=== PATIENT | male | born 1995 | race Hispanic/Latino ===

== ENCOUNTER 2021-02-08 09:31 | Emergency (ER) | payer SELFPAY ==
--- NOTE | 2021-02-08 09:38 | ED.EAR ---
HPI - Ear Problem General Chief complaint: Ear Stated complaint: ear pain Time Seen by Provider: 02/08/21 09:37 Source: patient and RN notes reviewed Mode of arrival: ambulatory Limitations: no limitations History of Present Illness HPI Narrative: 25 male presents with concern for bilateral ear pain and itching, worse on the left. Reports symptoms started 3 days ago. Reports hearing seems muffled in the left ear. Reports that he used a Q-tip in the left ear and a small amount of blood was on the Q-tip. Reports he has been taking Claritin for his symptoms. He denies any drainage from the ear, rhinorrhea, nasal congestion, headache, cough, sore throat. Denies any history with problems with this ear MD Complaint: ear pain Related Data Allergies Allergy/AdvReac Type Severity Reaction Status Date / Time No Known Allergies Allergy Unverified 02/08/21 09:46 Review of Systems Review of Systems: Narrative: CONSTITUTIONAL: Denies malaise, chills, sweats, or fever. EYES: Denies visual changes, redness, or discharge. ENT: Denies rhinorrhea, congestion, sinus pain, and sore throat. Reports bilateral otalgia and itching CARDIOVASCULAR: Denies chest pain, palpitations, or edema. RESPIRATORY: Denies cough dyspnea. GASTROINTESTINAL: Denies abdominal pain, nausea, vomiting, diarrhea SKIN: Denies rash or itching. MUSCULOSKELETAL: Denies myalgia. NEUROLOGIC: Denies headache. All systems reviewed & are unremarkable except as noted in HPI and below PMFSH Comments At time of signature, agree with nursing past medical, surgical, social and family history. There is no relevant family history pertinent to the presenting complaint Exam Narrative: Exam Narrative: GENERAL: Well-appearing, well-nourished, and in no acute distress. HEAD: Normocephalic EYES: PERRLA, conjunctivae clear ENT: Nares clear. Mucous membranes moist. TM pearly lancaster with dull light reflex bilaterally; no tragal tenderness. Oropharynx not erythematous without lesions. Tonsils not enlarged and without exudate, no drooling, no hoarseness, no trismus, uvula midline. NECK: Supple. No lymphadenopathy CHEST: Clear to auscultation, breath sounds equal. No wheezing, rhonchi, rales, or stridor. No respiratory distress, speaks in full sentences. HEART: Regular rate and rhythm. No murmur heard. SKIN: Warm, dry, no rash. NEURO: Alert and oriented x3. PSYCH: Normal mood and affect Course Course Emergency Course: Patient is aware of diagnosis, understands and agrees to treatment plan. Anticipatory guidance given. Patient agrees to follow-up as directed and is aware of reasons to seek care at the emergency department. Portions of this record may have been created with voice recognition software Vital Signs Vital signs: Vital Signs Temperature 96.9 F L 02/08/21 09:43 Pulse Rate 90 02/08/21 09:43 Respiratory Rate 16 02/08/21 09:43 Blood Pressure 140/75 02/08/21 09:43 Pulse Oximetry 99 02/08/21 09:43 Temperature 96.9 F L 02/08/21 09:46 Pulse Rate 90 02/08/21 09:46 Respiratory Rate 16 02/08/21 09:46 Blood Pressure 140/75 02/08/21 09:46 Pulse Oximetry 99 02/08/21 09:46 Reviewed. Medical Decision Making MDM Narrative Medical decision making narrative: Differential diagnosis considered: Ott virus, strep pharyngitis, allergic rhinitis, upper respiratory tract infection, sinusitis, rhinosinusitis, nasopharyngitis. viral pharyngitis, otitis media, otitis externa, pneumonia, bronchitis, viral cough syndrome, viral syndrome, and influenza. Exam findings show no acute concerns or changes; patient is non-toxic appearing and is in no distress. Patient is appropriate for outpatient treatment and follow-up. Vital Signs Vital Signs: Vital Signs Temperature 96.9 F L 02/08/21 09:43 Pulse Rate 90 02/08/21 09:43 Respiratory Rate 16 02/08/21 09:43 Blood Pressure 140/75 02/08/21 09:43 Pulse Oximetry 99 02/08/21 09:43 Temperature 96.9 F L
[2021-02-08 09:43] VITALS: BP 140/75; PULSE 90; RESP 16; TEMP 36.1; O2SAT 99
[2021-02-08 09:46] VITALS: BP 140/75; PULSE 90; RESP 16; TEMP 36.1; O2SAT 99
== END 2021-02-08 09:57 | disposition home or self-care (01) ==
PROVIDERS: Emergency Provider Nurse Practitioner
DX: H65.193 Other acute nonsuppurative otitis media, bilateral (principal)
CPT/HCPCS: 99213; G0463

== ENCOUNTER 2022-05-30 00:56 | Emergency (ER) | payer MEDICAID, SELFPAY ==
[2022-05-30 01:02] VITALS: BP 163/94; PULSE 88; RESP 18; TEMP 36.6; O2SAT 100
[2022-05-30 01:48] LABS: Glucose Point of Care 114 mg/dl (65-105)
--- NOTE | 2022-05-30 01:57 | ED.GENADULT ---
HPI - General Adult General Chief complaint: Unspecified Stated complaint: I think my belly button is infected Time Seen by Provider: 05/30/22 01:11 History of Present Illness HPI narrative: Pt is a 27 y/o male, presents to ED via POV with a small abscess in the umbilicus, first noticed 3 days ago as a sore pimple . The area has become firm around the umbilicus and he has attempted to squeeze it without success. He does endorse hx of a similar eruption several years ago but denies hx of MRSA. HE denies fevers or chills, CP, SOB, abdominal pain, NVDC or urinary symptoms Related Data Allergies Allergy/AdvReac Type Severity Reaction Status Date / Time No Known Allergies Allergy Unverified 02/08/21 09:46 Review of Systems Integumentary/Breasts: Comments: refer to HPI Exam Const: General: cooperative, healthy appearing, no acute distress, well developed, alert, awake and Physically active Orientation/consciousness: patient oriented x3 Limitations: no limitations HENMT: Head: normal to inspection Eyes: General: appearance normal, both eyes and all related structures Neck: Neck: normal visual inspection and no meningeal signs Chest: Chest palpation & inspection: normal inspection of the chest Resp: Effort & Inspection: normal respiratory effort Auscultation: clear to auscultation bilaterally Cardio: Palpation: normal PMI Rate: regular rate Heart sounds: S1 normal heart sound present and S2 normal heart sound present Skin: General skin exam: normal color Other: There is a small, superficial appearing abscess to the right umbilicus, with slight pressure applied to the abscess to determine fluctuance, the abscess ruptured and drained purulent discharge-culture obtained. There is no gross cellulitis surrounding and he has minimal tenderness to palpation over the affected area. No otherwise abnormality of the abdomen Neuro: General: oriented to person, patient oriented x3 and no focal motor deficits Course Course Emergency Course: plan: culture sent, [place] for home, FU with PCP, return if fevers arise. Vital Signs Vital signs: Vital Signs Temperature 36.6 C 05/30/22 01:02 Pulse Rate 88 05/30/22 01:02 Respiratory Rate 18 05/30/22 01:02 Blood Pressure 163/94 H 05/30/22 01:02 Pulse Oximetry 100 05/30/22 01:02 Oxygen Delivery Room Air 05/30/22 01:02 Temperature 36.6 C 05/30/22 01:02 Pulse Rate 88 05/30/22 01:02 Respiratory Rate 18 05/30/22 01:02 Blood Pressure 163/94 H 05/30/22 01:02 Pulse Oximetry 100 05/30/22 01:02 Oxygen Delivery Room Air 05/30/22 01:02 Medical Decision Making Differential Diagnosis Differential Diagnosis: abscess, cellulitis, MRSA Vital Signs Vital Signs: Vital Signs Temperature 36.6 C 05/30/22 01:02 Pulse Rate 88 05/30/22 01:02 Respiratory Rate 18 05/30/22 01:02 Blood Pressure 163/94 H 05/30/22 01:02 Pulse Oximetry 100 05/30/22 01:02 Oxygen Delivery Room Air 05/30/22 01:02 Temperature 36.6 C 05/30/22 01:02 Pulse Rate 88 05/30/22 01:02 Respiratory Rate 18 05/30/22 01:02 Blood Pressure 163/94 H 05/30/22 01:02 Pulse Oximetry 100 05/30/22 01:02 Oxygen Delivery Room Air 05/30/22 01:02 Lab Data Labs: Lab Results 05/30/22 Range/Units 01:43 POC Capillary Glucose 114 H (65-105) mg/dl Discharge Plan Discharge Clinical Impression: Abscess of umbilicus Patient Disposition: Home, Self-Care Condition: Stable Instructions: Antibiotic Form, Abscess (ED) Additional Instructions: KEEP AREA CLEAN AND DRY. COMPLETE ANTIBIOTICS DIRECTED, TAKE WITH FOOD TO LIMIT GI SIDE EFFECTS. SEE YOUR DOCTOR IN 3 DAYS FOR WOUND CHECK, SOONER IF HEALING CONCERNS ARISE Prescriptions: New doxycycline hyclate 100 mg capsule 100 mg PO BID Qty: 20 0RF No Action cetirizine-pseudoephedrine [Zyrtec-D] 5-120 mg tablet extended release 12 hr 1 tablet PO Q12H PRN (Reason: nasal
[2022-05-30 03:01] VITALS: BP 138/79; PULSE 88; RESP 16; O2SAT 98
== END 2022-05-30 03:02 | disposition home or self-care (01) ==
PROVIDERS: Emergency Provider Nurse Practitioner Family
DX: L02.216 Cutaneous abscess of umbilicus (principal)
CPT/HCPCS: 82948; 87070; 87205; 99283

== ENCOUNTER 2022-08-28 12:55 | Emergency (ER) | payer OTHER, SELFPAY ==
[2022-08-28 13:25] VITALS: BP 157/118; PULSE 98; RESP 18; TEMP 36.3; O2SAT 100
--- NOTE | 2022-08-28 13:36 | ED.SKABFB ---
HPI - Skin/Abscess/Foreign Bdy General Chief complaint: Skin/Abscess/Foreign Body Stated complaint: Bug Bites Time Seen by Provider: 08/28/22 13:38 Source: patient, RN notes reviewed and old records reviewed Mode of arrival: ambulatory Limitations: no limitations History of Present Illness HPI narrative: 27-year-old male presents to the [facility] with 3-4 days of itching over, states that he was in the car with his sister and was exposed to scabies. No rash noted at this time. No treatment prior to arrival Related Data Allergies Allergy/AdvReac Type Severity Reaction Status Date / Time No Known Allergies Allergy Unverified 02/08/21 09:46 Review of Systems Review of Systems: All systems reviewed & are unremarkable except as noted in HPI and below Constitutional: Constitutional: Reports no additional constitutional complaints, Denies chills and Denies fever(s) Eyes: Eyes: Reports no additional eye complaints ENT: Reports system reviewed and no additional complaints, except as documented Cardiovascular: Cardiovascular: Reports no additional cardiovascular complaints Respiratory: Respiratory: Reports no additional respiratory complaints Gastrointestinal: Gastrointestinal: Reports no additional gastrointestinal complaints Musculoskeletal: Musculoskeletal: Reports no additional musculoskeletal complaints Integumentary/Breasts: Skin/Breast: Reports as per HPI Neurologic: Reports system reviewed and no additional complaints, except as documented Psychiatric: Psychiatric: Reports no additional psychiatric complaints Allergic/Immunologic: Allergic/Immunologic: Reports no additional allergic/immunologic complaints PMFSH Social History Social History (Updated 08/28/22 @ 17:31 by Joie Rascon APRN) Gender identity (if verbalized by the patient): Male Comments At the time of my signature, I reviewed and agree with the nursing past medical, surgical, social, and family history. There is no relevant family history pertinent to the patient complaint. Exam Const: General: healthy appearing, comfortable, no acute distress, well developed, alert and well nourished Nutritional Appearance: well nourished Orientation/consciousness: patient oriented x3 Limitations: no limitations HENMT: Head: normal to inspection Ears: external ears normal Face/Nose/Sinus: Normal external nose present Mouth: Yes Normal oral and palatal mucosa present, Yes lip normal and Yes moist mucous membranes Eyes: General: appearance normal, both eyes and all related structures Pupils: Equal, round and reactive pupils present Neck: Neck: normal visual inspection, full ROM, no lymphadenopathy and no meningeal signs Chest: Chest palpation & inspection: normal inspection of the chest Resp: Effort & Inspection: normal respiratory effort and no use of accessory muscles Auscultation: clear to auscultation bilaterally, no crackles, no rales, no rhonchi and no wheezes Cardio: Rate: regular rate Rhythm: regular rhythm Back/Spine/Pelvis: Cervical Spine: cervical ROM normal and No Cervical spine tenderness Thoracic/Lumbar Spine: thoracic and lumbar spine normal to inspection and thoraco-lumbar ROM normal Skin: General skin exam: normal color Rashes: no rashes Wounds: no wounds Neuro: General: patient oriented x3, moves all extremities, no meningeal signs and no focal motor deficits Cranial nerves: Yes Equal, round and reactive pupils present Speech: normal speech Gait exam (Neuro): Normal gait present Extrem: General: normal to inspection, full ROM and capillary refill normal Psych: Appearance: grossly normal and well kempt Mental Status: mental status grossly normal Affect: normal affect Attitude: cooperative Thought content: Yes Normal thought content present Course Course Emergency Course: Discharge instructions reviewed with patient, as well as provided in writing per nursing staff. The instructions also include specific and strict ret
== END 2022-08-28 13:58 | disposition home or self-care (01) ==
PROVIDERS: Emergency Provider Nurse Practitioner
DX: Z20.7 Contact with and (suspected) exposure to pediculosis, acariasis and other infestations (principal)
CPT/HCPCS: 99213; G0463

== ENCOUNTER 2023-01-03 22:27 | Emergency (ER) | payer BC, SELFPAY ==
[2023-01-03 22:30] VITALS: BP 161/113; PULSE 104; TEMP 36.7; O2SAT 98
[2023-01-03 22:52] LABS: Appearance Urine Turbid (Clear); Bacteria Urine None Seen /hpf; Bilirubin Urine Negative (Negative); Color Urine Yellow (Yellow); Glucose Urine UA Negative (Negative); Ketones Urine Negative (Negative); Leukocyte Esterase Ur Negative LEU/UL (Negative); Nitrate Urine Negative (Negative); Non Pathogenic Casts 0-2; Protein Urine Negative (Negative); RBC Urine 0-2 /hpf (0-2); Specific Grav Ur 1.017 (1.001-1.035); Squamous Epithelial Cell Urine None seen /hpf (Few); Urobilinogen Urine 0.2 mg/dL (<2.0); WBC Urine 0-5 /hpf
[2023-01-03 22:53] LABS: Add Urine Microscopic? YES
[2023-01-04] MEDS: DOXYCYCLINE HYCLATE 100 MG TABLET PO (00:01)
[2023-01-04] MEDS: cefTRIAXone 1 GM VIAL 0.5 GM IM (00:02)
--- NOTE | 2023-01-04 00:17 | ED.MALEGU ---
HPI - Male Genitourinary General Chief complaint: Urogenital-Male <Rosa Acosta PA-C - Last Filed: 01/04/23 01:49> Stated complaint: penile discharge- gonorrhea <Rosa Acosta PA-C - Last Filed: 01/04/23 01:49> Time Seen by Provider: 01/03/23 22:35 <Rosa Acosta PA-C - Last Filed: 01/04/23 01:49> Source: patient <ABBY Granados Last Filed: 01/04/23 01:49> Mode of arrival: ambulatory <ABBY Granados Last Filed: 01/04/23 01:49> Limitations: no limitations <ABBY Granados Last Filed: 01/04/23 01:49> History of Present Illness HPI Narrative: Patient is a 27 y/o male who presents to the ED with concern for STD exposure. Patient reports he was treated for gonorrhea last week, however his male partner was not treated and he had sexual intercourse with his partner last night. His partner is now symptomatic. Patient is concerned he may need treatment again. He is currently asymptomatic. He denies any penile discharge, pain, abdominal pain, testicular pain or swelling, dysuria, hematuria, fevers. <ABBY Granados Last Filed: 01/04/23 01:49> Related Data Allergies/Adverse reactions: Allergies Allergy/AdvReac Type Severity Reaction Status Date / Time No Known Allergies Allergy Verified 01/04/23 22:05 <Rosa Acosta PA-C - Last Filed: 01/04/23 01:49> Review of Systems Review of Systems: CONSTITUTIONAL: Denies fever, chills, or sweats. GASTROINTESTINAL: Denies abdominal pain, nausea, vomiting, or diarrhea. GENITOURINARY: See HPI. SKIN: Denies rash or itching. MUSCULOSKELETAL: Denies back pain, joint pain, or myalgia. <ABBY Granados Last Filed: 01/04/23 01:49> All systems reviewed & are unremarkable except as noted in HPI and below <Rosa Acosta PA-C - Last Filed: 01/04/23 01:49> [facility] [place] Past Medical History Medical History: Medical History No pertinent past medical history <Rosa Acosta PA-C - Last Filed: 01/04/23 01:49> Surgical History Surgical History: Surgical History No pertinent past surgical history <Rosa Acosta PA-C - Last Filed: 01/04/23 01:49> Social History Social History: Social History Smoking status: Never smoker Gender identity (if verbalized by the patient): Male <Rosa Acosta PA-C - Last Filed: 01/04/23 01:49> Exam Narrative: GENERAL: Well appearing, well-nourished, non-toxic, in no acute distress. HEAD: Normocephalic, atraumatic. NECK: Supple. No adenopathy, no masses. RESPIRATORY: Airway patent, respirations nonlabored. Clear to auscultation bilaterally, no rales, rhonchi, wheezing. CARDIOVASCULAR: Regular rate and rhythm without murmurs, rubs, or gallops. Peripheral pulses 2+ and equal bilaterally. ABDOMINAL: Soft, nontender, nondistended, no hepatosplenomegaly. Normoactive BS. MUSCULOSKELETAL: Moves all extremities. Strength/ROM intact without gross deformities. SKIN: Warm, dry, normal color. No rashes. NEURO: A&O X3. Speech clear. Cranial nerves II-XII grossly intact. Steady gait. No ataxic movements. PSYCHIATRIC: Appropriate mood and affect. Normal interaction. <Rosa Acosta PA-C - Last Filed: 01/04/23 01:49> Course TITLE EXAMINER/PA Physician Supervision This is a was performed by both a physician and an APC. I performed all aspects of the MDM as documented w/ the following additions: 27-year-old male presenting with his boyfriend to be evaluated and treated for STDs. Swabs were obtained. Patient will be treated empirically. Instructed to practice safe sex.All questions answered. Patient in agreement w/ disposition. <Chito St MD - Last Filed: 01/09/23 21:08> Vital Signs Vital signs: Vi
[2023-01-04 00:50] VITALS: RESP 17; O2SAT 99
== END 2023-01-04 00:50 | disposition home or self-care (01) ==
PROVIDERS: Emergency Provider Physician Assistant
DX: Z11.3 Encounter for screening for infections with a predominantly sexual mode of transmission (principal); R36.9 Urethral discharge, unspecified
CPT/HCPCS: 70450; 81001; 87491; 87591; 87661; 96372; 99283; A9270; J0696

== ENCOUNTER 2023-01-04 21:34 | Emergency (ER) | payer BC, SELFPAY ==
--- NOTE | ~2023-01-04 | CT_ITS ---
EXAMINATION: CT brain wo con INDICATION: Head injury COMPARISON: None TECHNIQUE: Standard unenhanced head CT. The dose-length product (DLP) was 681.00 mGy-cm. The mA was a djusted according to patient size. Iterative reconstruction technique was employed. FINDINGS: There is no intracranial hemorrhage, acute infarction, or abnormal mass lesion. The ventric les are normal. There is no abnormal mass effect or midline shift. The lancaster-white matter differentiat ion is normal. The basal cisterns are patent. There is mild left periorbital soft tissue swelling. Th e orbits are normal. The paranasal sinuses, mastoids and calvarium are normal. IMPRESSION: 1. No acute intracranial abnormality. Reviewed, dictated and finalized at location F.
[2023-01-04 21:50] VITALS: BP 149/103; PULSE 117; RESP 18; TEMP 36.8; O2SAT 97
--- NOTE | 2023-01-04 22:11 | ED.GENADULT ---
HPI - General Adult General Chief complaint: Head Injury Stated complaint: Head lac Time Seen by Provider: 01/04/23 22:00 History of Present Illness HPI narrative: 27-year-old male presenting to the ED for evaluation of a laceration to his left eyelid. Patient states that earlier this evening he was struck in the left eyebrow by a pole that fell from the ceiling during a renovation. Patient states he did feel dazed after the injury. Patient denies any loss of conscious. Patient reports he does have alcohol on board. Patient denies any current change in vision. Patient is requesting no suture at this time. Patient denies any associated nausea or vomiting. Patient is alert and at his baseline. Patient has no other complaints of injury. Related Data Allergies Allergy/AdvReac Type Severity Reaction Status Date / Time No Known Allergies Allergy Verified 01/04/23 22:05 Review of Systems Review of Systems: All systems reviewed & are unremarkable except as noted in HPI and below PMFSH Past Medical History Medical History No pertinent past medical history Surgical History Surgical History No pertinent past surgical history Social History Social History Smoking status: Never smoker Gender identity (if verbalized by the patient): Male Exam Narrative: APPEARANCE: Well appearing HEAD: normocephalic, injury to left eyelid EYES: PERRLA/EOMI, conjunctivae clear. NOSE: Normal no drainage EARS:TMS clear with good light reflex. THROAT: Pharynx clear, no exudate. NECK: Supple. No adenopathy, no masses. RESPIRATORY: Airway patent, respirations nonlabored. Clear to auscultation bilaterally, no rales, rhonchi, wheezing. CARDIOVASCULAR: Regular rate and rhythm without murmurs rubs or gallops. MUSCULOSKELETAL: Moves all extremities. Strength/ROM intact, No edema, No calf tenderness. NEURO: Alert. Cranial nerves II through XII intact. Good gait. Good coordination SKIN: Injury to left eyelid, superficial laceration but there is a tissue avulsion on the medial aspect of the laceration Course Course Emergency Course: 27-year-old male who is intoxicated presenting for evaluation of laceration and head injury. Differential diagnosis includes intracranial injury, abdominal intoxication, laceration. 11:[address] was ordered to evaluate for any intracranial injury and head CT was negative. Patient denies any vision change. Patient has no periorbital tenderness to palpation. Normal fundus exam. Patient declined any suture or glue repair of the eyelid laceration. Patient also declined a tetanus update even though he is unsure of his last tetanus. Patient was encouraged of close follow-up with his primary care physician. All question concerns were addressed. Vital Signs Vital signs: Vital Signs Temperature 98.2 F 01/04/23 21:50 Pulse Rate 117 H 01/04/23 21:50 Respiratory Rate 18 01/04/23 21:50 Blood Pressure 149/103 H 01/04/23 21:50 Pulse Oximetry 97 01/04/23 21:50 Oxygen Delivery Room Air 01/04/23 21:50 Temperature 98.2 F 01/04/23 21:50 Pulse Rate 117 H 01/04/23 21:50 Respiratory Rate 18 01/04/23 21:50 Blood Pressure 149/103 H 01/04/23 21:50 Pulse Oximetry 97 01/04/23 21:50 Oxygen Delivery Room Air 01/04/23 21:50 Medical Decision Making Vital Signs Vital Signs: Vital Signs Temperature 98.2 F 01/04/23 21:50 Pulse Rate 117 H 01/04/23 21:50 Respiratory Rate 18 01/04/23 21:50 Blood Pressure 149/103 H 01/04/23 21:50 Pulse Oximetry 97 01/04/23 21:50 Oxygen Delivery Room Air 01/04/23 21:50 Temperature 98.2 F 01/04/23 21:50 Pulse Rate 117 H 01/04/23 21:50 Respiratory Rate 18 01/04/23 21:50 Blood Pressure 149/103 H 01/04/23 21:50 Pulse Oximetry 97 01/04/23 21:50 Oxyge
--- NOTE | 2023-01-04 23:37 | PC.NURSE ---
Patient refusing sutures. MD jackosn notified at this time.
== END 2023-01-04 23:46 | disposition home or self-care (01) ==
PROVIDERS: Emergency Provider Emergency Medicine
DX: S01.112A Laceration without foreign body of left eyelid and periocular area, initial encounter (principal); S09.90XA Unspecified injury of head, initial encounter; W20.8XXA Other cause of strike by thrown, projected or falling object, initial encounter
CPT/HCPCS: 70450; 99284

== ENCOUNTER 2024-12-02 00:41 | Emergency (ER) | payer OTHER, SELFPAY ==
[2024-12-02 00:48] VITALS: BP 176/114; PULSE 92; RESP 18; TEMP 36.4; O2SAT 100
[2024-12-02 03:15] LABS: Add Urine Microscopic? YES; Appearance Urine Cloudy (Clear); Bilirubin Urine Negative (Negative); Blood Urine Non-Hemolyzed Trace (Negative); Color Urine Yellow (Yellow); Glucose Urine UA Negative (Negative); Ketones Urine Trace mg/dL (Negative); Leukocyte Esterase Ur 2+ LEU/UL (Negative); Need Manual Microscopic Reviewed; Nitrate Urine Negative (Negative); Non Pathogenic Casts 0-2; Protein Urine 1+ mg/dL (Negative); RBC Urine 0-2 /hpf (0-2); Specific Grav Ur 1.027 (1.001-1.035); Squamous Epithelial Cell Urine None Seen /hpf (Few); Urobilinogen Urine 0.2 mg/dL (<2.0); WBC Clumps Urine Present /HPF; WBC Urine >100 /hpf (0-3); pH Urine 5.5 (5.0-9.0)
[2024-12-02 03:16] LABS: Bacteria Urine Rare /hpf
[2024-12-02 04:04] LABS: Trichomonas Vag PCR NOT DETECTED (NOT DETECTE)
[2024-12-02 04:29] LABS: Chlamydia trachomatis DETECTED (NOT DETECTE); Neisseria gonorrhoeae PCR DETECTED (NOT DETECTE)
--- NOTE | 2024-12-02 05:03 | ED_ITS ---
HPI - Male Genitourinary General Chief complaint: Urogenital-Male Stated complaint: wanting std testing Time Seen by Provider: 12/02/24 04:56 History of Present Illness HPI Narrative: 29-year-old otherwise healthy male presenting with penile discharge. He has had gonorrhea in the past. Recent sexual contact with a new partner. Denies any other symptoms such as burning with urination, hesitancy. No fever chills. No abdominal pain, back pain or rash. No penile lesions or lymphadenopathy. Related Data Allergies Allergy/AdvReac Type Severity Reaction Status Date / Time No Known Allergies Allergy Verified 12/02/24 00:50 Review of Systems Review of Systems: As reviewed [facility] Past Medical History Medical History No pertinent past medical history Surgical History Surgical History No pertinent past surgical history Social History Social History Smoking status: Never smoker Gender identity (if verbalized by the patient): Male Exam Narrative: GENERAL: [Well-appearing, well-nourished, and in no acute distress.] HEAD: [Normocephalic, atraumatic.] EYES: [PERRLA and EOMI.] ENT: Nares clear, no rhinorrhea or epistaxis. Mucous membranes moist. NECK: Supple. CHEST: [Clear to auscultation. No respiratory distress.] HEART: [Regular rate and rhythm]. No murmur heard. [Normal peripheral pulses.] ABDOMEN: [Soft, nondistended], [nontender], [No rigidity or guarding] EXTREMITIES: Normal range of motion. [No edema.] SKIN: Warm, dry, no rash. NEURO: [No focal deficits]. Alert and oriented [x3.] PSYCH: [Normal mood and affect.] Course Vital Signs Vital signs: Vital Signs Temperature 36.4 C 12/02/24 00:48 Pulse Rate 92 12/02/24 00:48 Respiratory Rate 18 12/02/24 00:48 Blood Pressure 176/114 H 12/02/24 00:48 Pulse Oximetry 100 12/02/24 00:48 Oxygen Delivery Room Air 02/25/25 00:48 Temperature 36.4 C 12/02/24 00:48 Pulse Rate 92 12/02/24 00:48 Respiratory Rate 18 12/02/24 00:48 Blood Pressure 176/114 H 12/02/24 00:48 Pulse Oximetry 100 12/02/24 00:48 Oxygen Delivery Room Air 12/02/24 00:48 MDM - Male Genitourinary MDM Narrative Medical decision making narrative: 29-year-old male presenting with STD concerns including penile discharge. No rashes or lymphadenopathy. Otherwise well-appearing not any distress. Has had gonorrhea in the past. Admits to 1 new sexual partner. Tested positive for gonorrhea and chlamydia, negative for Trichomonas. Given Rocephin intramuscular injection and started on doxycycline and prescription sent for 7 day course. Patient was encouraged to follow up with his regular doctor and contact his sexual partners for treatment as well. Patient was safe for discharge after treatment here in the ED. Medical Records Attestation: I reviewed the patient's medical records. Lab Data Attestation: I reviewed the patient's lab results. Labs: Lab Results 12/02/24 Range/Units 02:39 Urine Color Yellow (Yellow) Urine Appearance Cloudy H (Clear) Urine pH 5.5 (5.0-9.0) Ur Specific Honeydew 1.027 (1.001-1.035) Urine Protein 1+ H (Negative) mg/dL Urine Glucose (UA) Negative (Negative) mg/dL Urine Ketones Trace H (Negative) mg/dL Ur Blood (Man) Non-hemolyzed trace (Negative) Urine Nitrate Negative (Negative) Urine Bilirubin Negative (Negative) Urine Urobilinogen 0.2 (<2.0) mg/dL Add Ur Microanalysis Reviewed Leukocyte Esterase Rfl 2+ H (Negative) DAVIDE/UL Urine RBC 0-2 (0-2) /hpf Urine WBC >100 H (0-3) /hpf Urine WBC Clumps Present H (None) /HPF Ur Squamous Epith Cells None seen (Few) /hpf Urine Bacteria Rare /hpf Urine Casts 0-2 C. trachomatis (PCR) Detected A (NOT DETECTE) N. gonorrhoeae (PCR) Detected A (NOT DETECTE) T. vaginalis (PCR) Not detected (NOT DETECTE) Discharge Plan Discharge Clinical Impression: STD exposure, Gonorrhea, Chlamydia Patient Disposition: Home, Self-Care Condition: Stable Instructions: Antibiotic Form, Chlamydia (ED), Gonorrhea (ED) Additional Instructions: You tested positive for both gonorrhea and chlamydia. Take the medication including doxycycline 100 mg twice daily for 7 days. Contact any recent sexual partners and request that they get treated as well. Return with any new or worsening concerns otherwise follow-up with regular doctor. Patient Language: Russian Prescriptions: New doxycycline hyclate 100 mg capsule 100 mg PO BID 7 Days Qty: 14 0RF No Action permethrin 5 % cream 1 applic topical ONCE Qty: 60 0RF Rx Instructions: leave on for 8 to14 hrs before washing off doxycycline monohydrate 100 mg capsule 100 mg PO BID 7 Days Qty: 14 0RF Follow-up/Referrals: PHYSICIAN,IT OPERATIONS SPECIALIST [Primary Care Provider] - Time of Disposition: 05:00
[2024-12-02] MEDS: DOXYCYCLINE HYCLATE 100 MG TABLET PO (05:18)
[2024-12-02] MEDS: cefTRIAXone 1 GM VIAL 0.5 GM IM (05:18)
--- OUTSIDE RECORDS SUMMARY | 2024-12-02 05:18 | XMS_ITS | Referral Summary ---
Author Organization [facility] Address [address] [place] [address] Care Team Providers Care Sap Solutions Architect Name Role Phone Unknown, Notinfile Primary Care Provider Unavail able Allergies No known active allergies Medications pantoprazole DR (PROTONIX) 20 mg EC tablet Take 1 tablet (20 mg total) by mouth daily 30 tablet 04/08/2023 Active Immunizations Immunization Administration Dates Next Due Tdap 03/09/2023 Social History Tobacco Use Types Packs/Day Years Used Date Smoking Tobacco: Never Assessed Personal Safety Answer Date Recorded Have you ever been in or are you currently in a harmful physical or emotional relationship or is someone making you feel afraid or unsafe? 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 Gender Identity Not on file Sexual Orientation Not on file Last Filed Vital Signs Vital Sign Reading Time Taken Comments Blood Pressure 176/109 07/05/2024 11:15 PM CDT Pulse 80 07/05/2024 11:15 PM CDT Temperature 37.1 C (98.8 F) 07/05/2024 8:04 PM CDT Respiratory Rate 16 07/05/2024 8:35 PM CDT Oxygen Saturation 99% 07/05/2024 11: 15 PM CDT Inhaled Oxygen Concentration - - Weight 102.9 kg (226 lb 13.7 oz) 07/05/2024 8:04 PM CDT Height 175.3 cm (5' 9 ) 07/05/2024 8:04 PM CDT Body Mass Index 33.5 07/05/2024 8:04 PM CDT Plan of Treatment Not on file Insurance [employer] [facility] Care Teams Sap Solutions Architect Relationship Specialty Start Date End Date Unknown, Notinfile PCP - General 03/09/23
--- OUTSIDE RECORDS SUMMARY | 2024-12-02 05:18 | XMS_ITS | Clinical Summary ---
Author Organization [facility] Address [address] [place] [id number] Care Team Providers Care Greeter Name Role Phone None, Provider MD Primary Care Provider Unavaila ble Allergies No known active allergies Social History Tobacco Use Types Packs/Day Years Used Date Smoking Tobacco: Never Assessed Sex and Gender Information Value Date Recorded Sex Assigned at Not on file Legal Sex Male 2:24 PM BPM ANALYST Gender Identity Not on file Sexual Orientation Not on file Last Filed Vital Signs Vital Sign Reading Time Taken Comments Blood Pressure 151/96 10/10/2023 3:30 PM BPM ANALYST Pulse 74 10/10/2023 3:30 PM BPM ANALYST Temperature 36.8 C (98.2 F) 10/10/2023 2:43 PM BPM ANALYST Respiratory Rate 18 10/10/2023 3:30 PM BPM ANALYST Oxygen Saturation 100% 10/10/2023 3:30 PM BPM ANALYST Inhaled Oxygen Concentration - - Weight 104.3 kg (230 lb) 10/10/2023 2:43 PM BPM ANALYST Height 180.3 cm (5' 11 ) 10/10/2023 2:43 PM BPM ANALYST Body Mass Index 32.08 10/10/2023 2:43 PM BPM ANALYST Plan of Treatment Health Maintenance Due Date Last Done Comments Annual Physical 2000 HPV Vaccines (2 - Male 3-dose series) 11/06/2014 10/09/2014 Hepatitis C 2015 COVID-19 Vaccine ( season) 2024 Influenza Adult (#1) 2024 07/30/2015, 10/09/2014, 12/06/2010 DTaP, Tdap and Td Vaccines (4 - Td or Tdap) 03/09/2033 03/09/2023, 12/06/2010, 06/12/2000, Additional history exists Hepatitis B Vaccines Completed 1997, 1997, 1997 Meningococcal Vaccine Completed 10/09/2014, 011 Meningococcal B Vaccine Aged Out No l onger eligible based on patient's age to complete this topic Pneumococcal Vaccine: Pediatrics (0 to 5 Years) and At-Risk Patients (6 to 64 Years) Aged Out No longer eligible based on patient's age to complete this topic RSV Immunizations Under 20 Months Aged Out No longer eligible based on patient's age to complete this topic Insurance MEDICAID Care Teams Greeter Relationship Specialty Start Date End Date None, Provider, PCP - General UNKNOWN PHYSICIAN SPECIALTY 10/10/23
--- OUTSIDE RECORDS SUMMARY | 2024-12-02 05:18 | XMS_ITS | Clinical Summary ---
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 Gender Identity Not on file Sexual Orientation Not on file Obstetrics History Last Filed Vital Signs Vital Sign Reading [...] 07/05/2024 8:04 PM CDT Plan of Treatment Health Maintenance Due Date Last Done Comments Depression Screening 1997 Hepatitis C Screening 1997 HPV Vaccines (2 - Male 3-dose series) 11/06/2014 10/09/2014 Regular Well Visit/Exam 18-64 2015 Varicella Vaccines (1 of 2 - 13+ 2-dose series) 08/27/2015 Influenza Vaccine (#1) 2024 5, 10/09/2014, 12/06/2010 DTaP/Tdap/Td Vaccine (6 - Td or Tdap) 03/09/2033 03/09/2023, 12/06/2010, 06/12/2000, Additional history exists Hepatitis B Screening Completed 1997 , 1997, 1997 Pneumococcal vaccine <65 Aged Out No longer eligible based on patient's age to complete this topic Insurance A[employer] [facility] Care Teams Social Science Analyst Relationship Specialty Start Date End Date Unknown, Notinfile PCP - General 03/09/23
[2024-12-02] MEDS: LIDOCAINE 1% LOCAL INJ 10 ML VIAL (05:22)
[2024-12-02 05:23] VITALS: BP 156/88; PULSE 81; RESP 14; O2SAT 100
== END 2024-12-02 05:25 | disposition home or self-care (01) ==
LOC: ANHED 05:16
PROVIDERS: Physician Assistant; Emergency Provider Student in an Organized Health Care Education/Training Program
DX: A54.9 Gonococcal infection, unspecified (principal); A74.9 Chlamydial infection, unspecified
CPT/HCPCS: 81001; 87086; 87491; 87591; 87661; 96372; 99283; A9270; J0696; J2003